=== PATIENT | female | born 1945 | race Caucasian/White ===

== ENCOUNTER → 2016-12-07 | Outpatient (CLI) | payer MEDICARE, BC ==
[~2016-12-07] MED LIST: GLUCAGON1 MG/ML IM; GLUCOPHAGE-DPS500 MG PO; GLUTOSE 1537.5 GM PO; HYZAAR-100/251 TAB PO; LIPITOR DPS40 MG PO; MAALOX DPS30 ML PO; OXY IR DPS5 MG PO; QUESTRAN DPS4 GM PO; ROXANOL 20MG20 MG/ML PO; TOPROL XL DPS50 MG PO; TRICOR145 MG PO; TYLENOL DPS325 MG PO; ZOFRAN4 MG PO
== END | disposition home or self-care (01) ==
LOC: RAD.S 10:06
DX: Z12.31 Encounter for screening mammogram for malignant neoplasm of breast (principal); N63 Unspecified lump in breast; R92.0 Mammographic microcalcification found on diagnostic imaging of breast

== ENCOUNTER → 2016-12-12 | Outpatient (CLI) | payer MEDICARE, BC | END | disposition home or self-care (01) | LOC: RAD.S 12-08 13:43 | DX: N63 Unspecified lump in breast (principal); R92.1 Mammographic calcification found on diagnostic imaging of breast ==

== ENCOUNTER → 2016-12-19 | Outpatient (CLI) | payer MEDICARE, BC | END | disposition home or self-care (01) | LOC: RAD.S 09:10 | PROC: 0HBT3ZX Excision of Right Breast, Percutaneous Approach, Diagnostic (ICD-10-PCS; principal; 2016-12-19) | DX: N60.91 Unspecified benign mammary dysplasia of right breast (principal); L76.32 Postprocedural hematoma of skin and subcutaneous tissue following other procedure ==

== ENCOUNTER → 2017-06-18 | Outpatient (CLI) | payer MEDICARE, BC | END | disposition home or self-care (01) | LOC: RAD.S 09:48 | DX: N63.10 Unspecified lump in the right breast, unspecified quadrant (principal); R92.1 Mammographic calcification found on diagnostic imaging of breast ==